=== PATIENT | male | born 1955 | race Caucasian/White ===

== ENCOUNTER 2024-03-03 11:04 | Outpatient (CLI) | payer MEDICARE | END 2024-03-03 11:05 | disposition home or self-care (01) | LOC: CSHULT 11:04 | PROVIDERS: ATTEND Otolaryngology Plastic Surgery within the Head & Neck | DX: E04.1 Nontoxic single thyroid nodule (principal); E04.2 Nontoxic multinodular goiter | CPT/HCPCS: 76536 ==